=== PATIENT | male | born 1970 | race Caucasian/White ===

== ENCOUNTER 2017-08-21 21:51 | Emergency (ER) | payer OTHER ==
[~2017-08-21] VITALS: Ht 177.8 cm; Wt 82.5 kg
[~2017-08-21 21:51] MED LIST: FLUO20CA35 PO; METH500T37 PO; TRAM-10 PO
[2017-08-21 21:54] VITALS: TEMP 37; Ht 177.8 cm; Wt 82.5 kg
[2017-08-21] MEDS ORDERED: IBUP-103 PO (22:28)
[2017-08-21] MEDS ORDERED: TACR0.1O18 TOP (22:28)
[2017-08-21] MEDS ORDERED: FLUO0.0566 TOP (22:28)
[2017-08-21] MEDS ORDERED: GABA600T PO (22:28)
[2017-08-21] MEDS ORDERED: ACET-1256 PO (22:28)
--- NOTE | 2017-08-21 23:00 | DIAGNOSTIC IMAGING REPORT ---
L FOOT MIN 3 VIEWS ROUTINE CLINICAL HISTORY: Left foot pain. Patient stepped on nail. COMPARISON: None. DISCUSSION: No acute fractures are visualized. No radiopaque foreign bodies are evident. Arthritic changes are present at the level of the distal interphalangeal joints of the third and fourth toes. There are bony erosions involving the middle phalanges of the third fourth and fifth toes. IMPRESSION: 1. Arthritic changes involving the distal interphalangeal joints of the third through fifth toes with associated erosion/subcortical cysts 2. No acute fractures 3. No radiopaque foreign bodies identified Electronically signed by: Cecil Salcido M.D. 08/21/2017 10:59 PM Dictated Date/Time: 08/21/2017 10:57 PM
[2017-08-21] MEDS ORDERED: CIPROFLOXACIN 500 MG TAB PO STA (23:11)
[2017-08-21] MEDS ORDERED: CIPR-255 PO (23:21)
--- NOTE | 2017-08-21 23:22 | EMERGENCY ROOM VISIT NOTE ---
History First contact with patient: 22:15 Chief Complaint: PUNCTURE WOUND Stated Complaint: STEPPED ON A NAIL,LF FOOT Nursing Triage Summary: pt c/o stepping on a nail yesterday, left foot. c/o pain, "my toes are starting to hurt." chloe noted on bottom of left foot, no open areas or drainage noted. no reddness. tender to touch. left pedal pulse intact. History of Present Illness The patient is a 46 year old male who presents to the Emergency Room with complaints of left foot pain. Patient states that he stepped on a nail last night which went through his shoe. He reports he has had increasing pain to the area. He feels that there is swelling. He denies any drainage or redness. He rates his discomfort a 7/10 and states this is worse with weightbearing. Tetanus is up to date. Review of Systems A complete 10 point review of systems was reviewed with the patient with pertinent positives and negatives as per history of present illness. All else were negative. Social History Smoking Status: Current Every Day Smoker Current/Historical Medications Scheduled Ciprofloxacin Hcl (Cipro), 500 MG PO BID Gabapentin (Neurontin), 1,800 MG PO TID Scheduled PRN Acetaminophen (Tylenol), 1,000 MG PO Q6 PRN for Pain Fluocinonide (Fluocinonide), 1-2 DROPS TOP DAILY PRN for FLARE UPS Ibuprofen Tab (Advil), 600 MG PO Q8 PRN for Pain Methocarbamol (Robaxin), 1,000 MG PO Q6 PRN for Muscle Spasms Tacrolimus (Topical) (Protopic), 1 APPLN TOP BID PRN for GROIN, FLARE UPS Tramadol (Ultram), 50 MG PO Q6H PRN for Pain Physical Exam Vital Signs Date Time Temp Pulse Resp B/P (MAP) Pulse Ox O2 Delivery O2 Flow Rate FiO2 08/21/17 23:45 76 18 111/76 97 08/21/17 21:54 37.0 85 18 113/58 96 Room Air Physical Exam VITALS: Vitals are noted on the nurse's note and reviewed by myself. Vital signs stable. GENERAL: This is a 46-year-old male, in no acute distress, nondiaphoretic, well- developed well-nourished. MUSCULOSKELETAL: There is a small puncture wound to the lateral aspect of the ball of the foot. There is no surrounding erythema or warmth. There is no drainage. NEURO: Patient was alert and oriented to person place and time. Normal sensation to light and sharp touch. Medical Decision & Procedures ER Provider Diagnostic Interpretation: L FOOT MIN 3 VIEWS ROUTINE CLINICAL HISTORY: Left foot pain. Patient stepped on nail. COMPARISON: None. DISCUSSION: No acute fractures are visualized. No radiopaque foreign bodies are evident. Arthritic changes are present at the level of the distal interphalangeal joints of the third and fourth toes. There are bony erosions involving the middle phalanges of the third fourth and fifth toes. IMPRESSION: 1. Arthritic changes involving the distal interphalangeal joints of the third through fifth toes with associated erosion/subcortical cysts 2. No acute fractures 3. No radiopaque foreign bodies identified Medications Administered Medications (Trade) Dose Ordered Sig/Mireille Route Start Time Stop Time Status Last Admin Dose Admin Ciprofloxacin (Cipro Tab) 500 mg NOW STAT PO 08/21/17 23:11 08/21/17 23:13 DC 08/21/17 23:35 500 MG Medical Decision Differential diagnosis includes cellulitis, abscess, fracture, foreign body, contusion, among others. The patient was evaluated as above. He stepped on a nail yesterday. There is no evidence of cellulitis at this time. X-ray of the foot was obtained and did not show any fractures or foreign bodies. Patient will be treated with a short course of ciprofloxacin to prevent infection. His tetanus is up-to-date. He was placed in a postoperative shoe for comfort. He verbalized understanding was discharged home in good condition. Medication Reconcilliation Current Medication List: was personally reviewed by tx Blood Pressure Screening Patient's blood pressure: Normal blood pressure Impression Primary Impression: Puncture wound of foot Departure Information Dispostion Home / Self-Care Condition GOOD Prescriptions Ciprofloxacin Hcl (CIPRO) 500 Mg Tab 500 MG PO BID for 7 Days, #14 TAB Prov: Soraya Keyes .SOBIA 08/21/17 Referrals Talib Heard M.D. (PCP) Patient Instructions My [facility] Additional Instructions You were prescribed ciprofloxacin to be taken as prescribed. This is an antibiotic. All antibiotics have the potential to cause diarrhea. Stop this medication and contact a medical provider if you were to develop any significant adverse side effects including: wheezing, shortness of breath, passing out, vomiting, or a diffuse rash. Always take antibiotics as directed and COMPLETE the ENTIRE course regardless of the improvement of your symptoms. For pain control, you can use the following [id number] medicines (if >12 yo): - Regular strength (325mg/tab) Tylenol (acetaminophen) 2 tabs every 4-6 hours as needed. Do not exceed 12 tablets in a 24 hour period. Avoid taking more than 4 grams (4000 mg) of Tylenol per day. This includes any other sources of acetaminophen you may take on a regular basis. - Regular strength (200 mg/tab) Advil (ibuprofen) 1-2 tabs every 4-6 hours as needed. Do not exceed a dose of 3200 mg per day. Wear the postoperative shoe for the next 3-4 days then as needed. Return for any signs of increasing infection such as redness, increased swelling or fevers. Problem Qualifiers Primary Impression: Puncture wound of foot Encounter type: initial encounter Laterality: left Qualified Codes: S91.332A - Puncture wound without foreign body, left foot, initial encounter
[2017-08-21 23:45] VITALS: BP 111/76; PULSE 76; O2SAT 97
== END 2017-08-21 23:45 | disposition home or self-care (01) ==
LOC: C.EDB 21:51 → C.EDC 23:45
DX: S91.332A Puncture wound without foreign body, left foot, initial encounter (principal); W45.0XXA Nail entering through skin, initial encounter; Y92.9 Unspecified place or not applicable; F17.210 Nicotine dependence, cigarettes, uncomplicated